=== PATIENT | female | born 1940 | race Caucasian/White ===

== ENCOUNTER 2023-09-07 20:34 | Inpatient (IN) | payer MEDICARE, SELFPAY ==
[2023-09-07 17:07] VITALS: BP 166/58
[2023-09-07 17:15] LABS: Glucose - Point of Care 57 mg/dl (70-99)
[2023-09-07] MEDS: DEXTROSE 50% SYRINGE 12.5 GRAMS IV ×2 (17:20→22:49)
--- NOTE | 2023-09-07 17:23 | ED.GENMED ---
History of Present Illness
General
Chief Complaint: Breathing Problem
Source: ambulance crew
Exam Limitations: dementia
Time Seen by Provider: 09/07/23 17:14
Travel History
Have you had any contact with someone who has COVID-19?: No
Do you have any symptoms of coronavirus? Fever > 100 degrees, chills, cough, shortness of breath, sore throat, loss of taste or smell, muscle aches, or headache?: No
History of Present Illness
History of Present Illness:
See MDM
Past History
Past History
ED Past Medical History: CHF, Other (Dementia) and Other (Chronic hearing loss, hypertension, hyperlipidemia, diabetes)
ED Past Surgical History: Gynecological (Hysterectomy)
Social History
Tobacco: Former smoker
Alcohol: None
Personal:
Living: assisted living ([facility])
Family History
Family History: CAD
Phy Exam
Physical Exam
Physical Exam:
See MDM
Scores
Heart Failure Risk
Heart Failure Risk Score: Not Applicable
Course
Orders/Labs/Results
Orders:
Orders
09/07/23 17:18
Dextrose 50%-Water [Dextrose 50% Syringe] 12.5 grams IV NOW STA
Dextrose 50%-Water [Dextrose 50% Syringe] 25 grams .ROUTE .[facility]
CR Chest Portable - 1 View Urgent
Comment:
Reason For Exam: SOB, hypoxia
Reason Study Needs to be Portable: Patient Unstable
09/07/23 17:19
Electrocardiogram (*1) Urgent
Reason for Study: Shortness of Breath
EKG- Treatment ONCE
09/07/23 17:24
COVID-19 Antigen Urgent
Source: Nasal Swab
Complete Blood Count/With Diff Urgent
Comprehensive Metabolic Panel Urgent
NT-proBNP Urgent
Troponin I Urgent
Influenza A+B Rapid Molecular Urgent
ERNESTINA Source: Nasal Swab
Specimen Description:
09/07/23 18:52
Azithromycin 500 mg IVPB NOW Azithromycin 500 mg/250 ml [Zithromax Infusion] 500 mg in 250 ml IV NOW
Aztreonam [Azactam] 2,000 mg IV NOW STA
Abnormal Lab Results
09/07/23 09/07/23
17:14 17:24
MCHC 32.4 L g/dL
(33.0-37.0)
RDW 15.2 H %
(11.5-14.5)
Absolute Neuts (auto) 7.6 H 10^3/uL
(1.4-6.5)
Absolute Monos (auto) 0.9 H 10^3/uL
(0.1-0.6)
Lymphocytes % 18.0 L %
(20.5-51.1)
Potassium 3.3 L mmol/L
(3.5-5.1)
Carbon Dioxide 33 H mmol/L
(22-30)
BUN 18 H mg/dl
(7-17)
Glucose 60 L mg/dl
(70-99)
POC Glucose 57 L mg/dl
(70-99)
09/07/23 17:24
09/07/23 17:24
Vital Signs
Initial and Last Documented VS:
Initial Vital Signs
Temp Pulse Resp BP Pulse Ox
98.2 F 67 21 166/58 89
09/07/23 17:07 09/07/23 17:07 09/07/23 17:07 09/07/23 17:07 09/07/23 17:07
Last Documented Vital Signs
Temp Pulse Resp BP Pulse Ox
98.2 F 68 19 147/58 97
09/07/23 17:07 09/07/23 18:30 09/07/23 18:30 09/07/23 18:00 09/07/23 18:30
MDM/Problems Addressed
Differential Diagnosis Includes:
HPI and MDM Narrative:
83-year-old female presenting with shortness of breath. Patient is a poor historian. She comes with paperwork indicating vascular dementia. Per EMS, there was concern from the nursing facility that she may have aspirated. Patient has required
increased oxygenation.
Prior history indicates history of admission for CHF exacerbation. Will continue supplemental oxygen and obtain chest x-ray, EKG and blood work
Physical exam
General: Mildly uncomfortable
HEENT: protecting airway
Neck: appears supple
CV: No evidence of cyanosis
Resp: No accessory muscle use. Mild wheeze and crackles at bases
Abd: Non-distended
Extremities: +3 pitting edema bilateral lower extremities
Neuro: alert
Psych: Flat affect
Skin: Intact
Problems Addressed including Acute and Chronic Conditions affecting care:
1. Shortness of breath
Acuity: acute
Prognosis: unstable
Details: Likely in setting of CHF. Will obtain basic blood work and chest
2. Hypoxia
Acuity: acute
Prognosis: unstable
Details: Will continue supplemental oxygen
3. Hypoglycemia
Acuity: acute
Prognosis: stable
Details: Patient given half an amp of D50
Updates
Chest x-ray concerning for right middle lobe pneumonia. Given her penicillin allergy, will start azithromycin and aztreonam. Given her increased oxygen requirement, will admit
Differential Diagnosis (but not limited to): CHF exacerbation, pneumonia, viral syndrome
Testing considered: D-dimer but blood work indicates that she is taking Eliquis
Drug therapy (if applicable): OTC meds, please see d/c instruction regarding Rx drugs
Amount and/or Complexity of Data Reviewed
Clinical info obtained from: Patient
External data reviewed: N/A
Labs I independently reviewed (but not limited to): trop and BNP normal
Radiology: X-ray independently reviewed: Chest x-ray with right middle lobe pneumonia
Pulse Ox: hypoxic
EKG independently reviewed: N/A
[employer] Carp[employer] Dock: N/A
Critical Care: N/A
Risk of Complication:
Social Determinants of health: Good social support
Discussed with other providers: Hospitalist
Escalation of Care includes Admit/Obs: Given her pneumonia and increased oxygen requirement, will admit
Occasional wrong word or 'sound a like' substitutions may have occurred due to the inherent limitations of voice recognition software. Read the chart carefully and recognize, using context, where substitutions have occurred.
*Critical Care Note
Total Time (30-74mins, 75-104mins- exclusive of procedures): Not Applicable
ED Attending Note
-
Portions of this chart may have been created with voice recognition software.� Occasional wrong word or��sound alike� substitutions may have occurred due to the inherent limitations of voice recognition software.
Discharge Plan
Departure
Patient Disposition: Admit
Date of Disposition: 09/07/23
Time of Disposition: 18:56
Admit to: Med/Surg
Presentation/result/management discussed w/ accepting MD/DO: Hospitalist
Discharge Problem:
PNA (pneumonia), Hypoxia, Hypoglycemia
Prescriptions:
No Action
simvastatin 20 MG tablet
20 mg PO QPM
calcium citrate 200 mg (950 mg) Tablet
200 mg PO DAILY
therapeutic multivitamin Tablet
1 tab PO DAILY
metformin 1,000 mg Tablet
1,000 mg PO BID
Lumigan 0.01 % Drops
1 drp BOTH EYES DAILY
lisinopril 20 mg tablet
20 mg PO DAILY
pantoprazole 40 mg tablet,delayed release (DR/EC)
40 mg PO DAILY
budesonide-formoterol [Symbicort] 160-4.5 mcg/actuation HFA aerosol inhaler
2 puff inhalation R BID
Eliquis 5 mg tablet
5 mg PO BID
dapagliflozin propanediol [Farxiga] 10 mg tablet
10 mg PO DAILY
furosemide 20 mg Tablet
60 mg PO DAILY Qty: 30 0RF
midodrine 5 mg Tablet
5 mg PO TID@0800,1300,1800 Qty: 30 0RF
metoprolol succinate 50 mg tablet extended release 24 hr
50 mg PO DAILY
ondansetron HCl [Zofran] 4 mg Tablet
4 mg PO Q8H PRN (Reason: nausea/vomiting)
clotrimazole-betamethasone [Lotrisone] 1-0.05 % Cream
1 applic TOPICAL BID
Rx Instructions:
apply to buttocks/dana area
Cetaphil Cream
1 applic TOPICAL HS
Rx Instructions:
apply to bilateral legs
insulin glargine [Lantus Solostar U-100 Insulin] 100 unit/mL (3 mL) insulin pen
24 unit SC DAILY
amiodarone [Pacerone] 200 mg tablet
200 mg PO DAILY
Referrals:
Tatum Rossi DO [Family Provider] -
Interventions
Interventions:
ED- Cardiac Assessment Last Done: 09/07/23 17:10
ED- Pulmonary Assessment Last Done: 09/07/23 17:10
[2023-09-07 17:36] LABS: % Basophils 0.6 % (0-2); % Eosinophils 2.7 % (0-6); % Immature Granulocytes 0.4 % (0-0.5); % Monocytes 7.9 % (1.7-9.3); % Neutrophils 70.4 % (42.2-75.2); Absolute Basophils 0.1 10^3/uL (0-0.2); Absolute Eosinophils 0.3 10^3/uL (0-0.7); Absolute Monocytes 0.9 10^3/uL (0.1-0.6); Absolute Neutrophils 7.6 10^3/uL (1.4-6.5); Hemoglobin 13.3 g/dL (12.0-16.0); Mean Corp Hgb Conc. 32.4 g/dL (33.0-37.0); Mean Corpuscular Hgb 28.1 pg (27.0-31.0); Mean Corpuscular Volume 86.7 fL (81.0-99.0); Mean Platelet Volume 9.7 fL (7.4-10.4); Nucleated Red Blood Cells % 0 %; Platelet Count 352 10^3/uL (130-400); Red Blood Cell Count 4.73 10^6/uL (4.20-5.40); Red Cell Dist. Width 15.2 % (11.5-14.5); White Blood Cell Count 10.8 10^3/uL (4.8-10.8)
[2023-09-07 17:45] LABS: ALT (SGPT) 20 U/L (0-35); AST (SGOT) 21 U/L (14-36); Albumin 3.7 g/dl (3.5-5.0); Alkaline Phosphatase 73 U/L (38-126); Blood Urea Nitrogen 18 mg/dl (7-17); Calcium 9.2 mg/dl (8.4-10.2); Carbon Dioxide 33 mmol/L (22-30); Chloride 99 mmol/L (98-107); Glucose 60 mg/dl (70-99); Potassium 3.3 mmol/L (3.5-5.1); Sodium 138 mmol/L (135-145); Total Bilirubin 0.6 mg/dl (0.2-1.3); Total Protein 6.6 g/dl (6.3-8.2); eGFR > 60.00
[2023-09-07 17:52] LABS: COVID-19 Antigen Negative (Negative)
[2023-09-07 17:55] LABS: NT-proBNP 713 pg/ml; Troponin I 0.022 ng/ml
[2023-09-07 18:00] VITALS: BP 147/58
[2023-09-07 19:00] VITALS: BP 138/86
[2023-09-07] MEDS: AZACTAM 2000 MG IV (19:10)
[2023-09-07] MEDS: ZITHROMAX INFUSION 250 IV (19:14)
[2023-09-07 20:00] VITALS: BP 156/135
[2023-09-07] MEDS: DUONEB 3 ML INH (20:00)
--- NOTE | 2023-09-07 20:10 | HPS.HSE ---
Family Physician
-
Family Physician: Tatum Rossi
Chief Complaint
-
SOB
History of Present Illness
Patient is an 83y F with PMH significant for A-Fib and DM-II who presents to ED from [place] for evaluation of wheeze and SOB. History is obtained from the patient and ED staff. Patient was sent to the ED with SOB and concern for possible
aspiration. There is no additional information on [place] paperwork regarding today's symptoms. Patient complains of SOB. She denies any pain. She does not believe she has had any issues with eating / drinking. She denies any coughing or choking
episodes.
Patient is audibly wheezing in the ED and is in mild - moderate distress due to dyspnea.
Medical History
Past Medical History
Past Medical History: Reports Other
Additional Past Medical History:
Atrial Fibrillation
Chronic HFpEF
DM-II
Hypertension
Orthostatic Hypotension
COPD
Vascular Dementia
Hearing Impairment
Morbid Obesity
Past Surgical History: Reports Other
Additional Past Surgical History:
None Known
Social History
Tobacco: Non-smoker
Alcohol: None
Living: Long Term
Family History
Family History: Not pertinent
Allergies / Home Medications
Allergies reflects when Allergies were last updated in [employer].
Home Medications with original date entered in [employer]
Allergy/Medication List:
Allergies
Allergy/AdvReac Type Severity Reaction Status Date / Time
Penicillins Allergy Unknown Verified 05/03/15 09:00
Home Medications
simvastatin 20 mg tablet 20 mg PO QPM High cholesterol 03/10/19
calcium citrate 200 mg (950 mg) tablet 200 mg PO DAILY Supplement 07/14/22
therapeutic multivitamin 1 tab PO DAILY Supplement 07/14/22
metformin 1,000 mg tablet 1,000 mg PO BID Diabetes 09/27/22
apixaban 5 mg tablet (Eliquis) 5 mg PO BID Blood Clot Prevention/Tx 05/09/23
bimatoprost 0.01 % eye drops (Lumigan) 1 drp BOTH EYES DAILY Eye Condition 05/09/23
budesonide-formoterol HFA 160 mcg-4.5 mcg/actuation aerosol inhaler (Symbicort) 2 puff inhalation R BID Lung/Breathing Issues 05/09/23
dapagliflozin propanediol 10 mg tablet (Farxiga) 10 mg PO DAILY Diabetes 05/09/23
lisinopril 20 mg tablet 20 mg PO DAILY Blood Pressure 05/09/23
pantoprazole 40 mg tablet,delayed release 40 mg PO DAILY Gastrointestinal Issue 05/09/23
furosemide 20 mg tablet 60 mg PO DAILY #30 tabs 05/20/23
midodrine 5 mg tablet 5 mg PO TID@0800,1300,1800 #30 tabs 05/20/23
amiodarone 200 mg tablet (Pacerone) 200 mg PO DAILY Arrhythmia 09/07/23
cetyl and stearate alcohol-propylen glycol-sls topical cream (Cetaphil topical cream) 1 applic topical HS 09/07/23
clotrimazole-betamethasone 1 %-0.05 % topical cream 1 applic topical BID 09/07/23
insulin glargine 100 unit/mL (3 mL) subcutaneous pen (Lantus Solostar U-100 Insulin) 24 unit SC DAILY 09/07/23
metoprolol succinate 50 mg tablet,extended release 24 hr 50 mg PO DAILY 09/07/23
ondansetron HCl 4 mg tablet 4 mg PO Q8H PRN nausea/vomiting 09/07/23
Review of Systems
-
History Source: Patient (limited ROS due to memory impairment and dyspnea)
A 12 point ROS was completed and negative except as noted: Yes
Constitutional: Denies Fever
Respiratory: Reports Trouble Breathing
Cardiac: Denies Chest Pain
Abdomen/GI: Denies Nausea, Vomiting or Diarrhea
Neurological: Denies Headache
Physical Exam
Vital Signs
Vital Signs
Temp Pulse Resp BP Pulse Ox
98.2 F 68 19 147/58 97
09/07/23 17:07 09/07/23 18:30 09/07/23 18:30 09/07/23 18:00 09/07/23 18:30
Physical Exam
General: Other (83y F in moderate distress due to dyspnea.)
HEENT: Moist mucous membranes and PERRLA
Respiratory: Other (Audible wheezing. Coarse breath sounds on the R. Diffuse inspiratory and expiratory wheezing - minimal improvement with cough.)
Cardiac: S1/S2, Irregular Rhythm and Other (No JVD.); No Murmur
GI: Soft, Non Tender, Non Distended and Normal Bowel Sounds
Musculoskeletal: No Clubbing, No Cyanosis and Other (2+ pitting edema.)
Skin: Other (Cyanosis of the fingertips.)
Neuro: Awake and Alert
Laboratory Results
-
09/07/23 17:24
09/07/23 17:24
Laboratory Results
Total Bilirubin 0.6 mg/dl (0.2-1.3) 09/07/23 17:24
AST 21 U/L (14-36) 09/07/23 17:24
ALT 20 U/L (0-35) 09/07/23 17:24
Alkaline Phosphatase 73 U/L (38-126) 09/07/23 17:24
Troponin I 0.022 ng/ml 09/07/23 17:24
Impression/Plan
-
A/P: Patient is an 83y F with PMH significant for A-Fib, COPD and CHF who presents to ED for evaluation of SOB.
RLL Pneumonia
Acute Hypoxemic Respiratory Failure secondary to the above
Sepsis secondary to the above
- Admit for further evaluation and treatment.
- Patient presents with SOB and CXR evidence for R base pneumonia.
- Evidence of life-threatening organ dysfunction in the form of acute hypoxemic respiratory failure.
- Continue IV abx with ceftriaxone, doxycycline and metronidazole with suspicion for aspiration pneumonia / pneumonitis.
- Continue nebs ATC and PRN.
- Chest PT.
- Follow for clinical improvement.
- Aspiration precautions / formal Speech therapy evaluation.
Paroxysmal Atrial Fibrillation
- Stable. Continue amiodarone and metoprolol.
- Continue Eliquis for stroke risk reduction.
Chronic HFpEF
- Stable. Doubt significant volume overload contributing to current presentation.
- BNP markedly improved from prior - despite some persistent LE edema.
- No rales on exam and CXR not consistent with pulmonary edema.
- Continue current regimen including Lasix and Farxiga.
- Follow I/Os, daily weights, etc.
- Will continue current midodrine for now (see below).
Benign Hypertension
- Stable. BP is acceptable at present.
- Patient is on metoprolol and lisinopril - but also on midodrine standing TID.
- Will hold lisinopril for now.
- Holding parameters for midodrine.
- Adjust regimen as needed for control.
Hypokalemia
- Mild hypokalemia. Will replete as patient is on loop diuretics.
- Follow for stability.
COPD
- Patient with no smoking history, but is maintained on Symbicort.
- Continue inhaled corticosteroids.
- Continue nebs as noted above.
- Consider systemic steroids with respiratory status does not improve.
DM-II
Mild Hypoglycemia
- Adjust insulin regimen for hypoglycemia / NPO status pending Speech eval.
- Continue to monitor glucose and cover with SSI if needed.
- Update A1C.
Vascular Dementia
- Stable. Monitor for any acute changes / agitation / delirium.
Morbid Obesity due to excess calories
- Affects all aspects of care, including respiratory status.
- Doubt that this 83y F with dementia is capable of significant dietary / activity changes required to impact weight.
DVT Prophylaxis: On Eliquis
Code Status: DNR
[2023-09-07] MEDS: KCL 270 MEQ IV (20:29)
[2023-09-07 22:28] VITALS: BMI 32.0
[2023-09-07 22:30] VITALS: BMI 32.0
[2023-09-07 22:32] VITALS: BP 122/62
[2023-09-07 22:37] LABS: Glucose - Point of Care 63 mg/dl (70-99)
[2023-09-07] MEDS: ELIQUIS 5 MG PO (22:54)
[2023-09-07 23:14] LABS: Glucose - Point of Care 117 mg/dl (70-99)
[2023-09-07] MEDS: FLAGYL 500 MG 100 IV (23:31)
[2023-09-08] MEDS: LUMIGAN 0.01% 1 DROP BOTH EYES (00:03)
[2023-09-08] MEDS: VENTOLIN NEBULES 2.5 MG INH (01:47)
[2023-09-08] MEDS: ROCEPHIN 1000 MG IV (02:46)
[2023-09-08] MEDS: STERILE WATER FOR INJECTION 10 ML IV (02:46)
[2023-09-08 03:45] VITALS: BP 139/52
[2023-09-08 03:58] LABS: Glucose - Point of Care 81 mg/dl (70-99)
--- NOTE | 2023-09-08 03:59 | PTCARENOTE ---
Patient arrived on unit @2210 via stretcher from ED, transferred from stretcher to bed with assist x3. Patient AAOx2, slow speech, audible wheeze, denies any pain or discomfort. Skin assessment completed, oriented to unit. BS on arrival is 63, pt
NPO, dextrose 50% syringe 12.5 grams administered as ordered. Recheck of BS 117, will continue plan of care.
[2023-09-08 06:00] VITALS: BMI 31.9
[2023-09-08] MEDS: FLAGYL 500 MG 100 IV (06:04)
[2023-09-08 06:09] LABS: Glucose - Point of Care 78 mg/dl (70-99)
[2023-09-08] MEDS: PULMICORT 0.5 MG INH (06:12)
[2023-09-08] MEDS: DUONEB 3 ML INH ×2 (06:13→10:08)
[2023-09-08 06:31] LABS: Hematocrit 39.8 % (37.0-47.0); Hemoglobin 12.8 g/dL (12.0-16.0); Mean Corp Hgb Conc. 32.2 g/dL (33.0-37.0); Mean Corpuscular Hgb 28.3 pg (27.0-31.0); Mean Corpuscular Volume 88.1 fL (81.0-99.0); Mean Platelet Volume 9.7 fL (7.4-10.4); Platelet Count 312 10^3/uL (130-400); Red Blood Cell Count 4.52 10^6/uL (4.20-5.40); Red Cell Dist. Width 15.3 % (11.5-14.5); White Blood Cell Count 8.3 10^3/uL (4.8-10.8)
[2023-09-08 06:57] LABS: Blood Urea Nitrogen 18 mg/dl (7-17); Calcium 9.3 mg/dl (8.4-10.2); Carbon Dioxide 32 mmol/L (22-30); Chloride 102 mmol/L (98-107); Estimated Creatinine Clearance 54 ml/min; Glucose 80 mg/dl (70-99); Magnesium 1.2 mg/dl (1.6-2.3); Potassium 3.9 mmol/L (3.5-5.1); Sodium 141 mmol/L (135-145); eGFR > 60.00
[2023-09-08 07:25] LABS: TSH Reflex To Free T4 2.24 uIU/ml (0.47-4.68)
[2023-09-08 07:45] VITALS: BP 152/66
--- NOTE | 2023-09-08 08:18 | W.PN.HOSP.TC ---
Addendum entered and electronically signed by Jered Paris MD 09/08/23 10:10:
Patient developed significant desaturation of O2 and respiratory congestion continues will be placed nonrebreather and will need to transfer to higher level of care patient is DO NOT RESUSCITATE and would not require ICU IMU appropriate left message
for patient and spouse but no answer and need to clarify goals of care tried reaching patient's sister and just did not ring at all at number given.
Addendum entered and electronically signed by Jered Paris MD 09/08/23 09:35:
Speech therapy evaluated the patient and evaluation consistent with high risk of recurrent aspiration and apparent inability to protect airway will be kept n.p.o. I will try and contact primary fireperson which is her spouse in regards to goals
of care she will be kept n.p.o. with change of medications what can to IV/if after repeat evaluation remains unchanged consideration for Dobbhoff tube feeds and medications versus PEG.
Original Note:
Today's Communication/Plan
-
Suspect she is either acutely or chronically aspirating
She continues to have some significant bronchospasm
Would favor short course of IV steroids in addition to continued DuoNebs and oxygen as needed
Await speech therapy evaluation to assess aspiration risk
Continue present course of ordered antibiotic
Cardiac status seems to be stable
Assessment / Plan
Assessment / Plan
Patient is an 83y F with PMH significant for A-Fib and DM-II who presents to ED from [place] for evaluation of wheeze and SOB.� History is obtained from the patient and ED staff.� Patient was sent to the ED with SOB and concern for possible
aspiration.� There is no additional information on [place] paperwork regarding today's symptoms.� Patient complains of SOB.� She denies any pain.� She does not believe she has had any issues with eating / drinking.� She denies any coughing or choking
episodes. Poor historian
Patient is audibly wheezing in the ED and is in mild - moderate distress due to dyspnea.
Physical Exam
General: Other (83y F in moderate distress due to dyspnea.)
HEENT: Moist mucous membranes and PERRLA
Respiratory: Other (Audible wheezing.� Coarse breath sounds on the R.� Diffuse inspiratory and expiratory wheezing - minimal improvement with cough.)
Cardiac: S1/S2, Irregular Rhythm and Other (No JVD.); No Murmur
GI: Soft, Non Tender, Non Distended and Normal Bowel Sounds
Musculoskeletal: No Clubbing, No Cyanosis and Other (2+ pitting edema.)
Skin: Other (Cyanosis of the fingertips.)
Neuro: Awake and Alert
A/P:� Patient is an 83y F with PMH significant for A-Fib, COPD and CHF who presents to ED for evaluation of SOB.
RLL Pneumonia
Acute Hypoxemic Respiratory Failure secondary to the above
Sepsis secondary to the above
�- Admit for further evaluation and treatment.
�- Patient presents with SOB and CXR evidence for R base pneumonia.
�- Evidence of life-threatening organ dysfunction in the form of acute hypoxemic respiratory failure.
�- Continue IV abx with ceftriaxone, doxycycline and metronidazole with suspicion for aspiration pneumonia / pneumonitis.
�- Continue nebs ATC and PRN.
�- Chest PT.
�- Follow for clinical improvement.
�- Aspiration precautions / formal Speech therapy evaluation.
Paroxysmal Atrial Fibrillation/presently in sinus rhythm
�- Stable.� Continue amiodarone and metoprolol.
�- Continue Eliquis for stroke risk reduction.
Chronic HFpEF
�- Stable.� Doubt significant volume overload contributing to current presentation.
�- BNP markedly improved from prior - despite some persistent LE edema.
�- No rales on exam and CXR not consistent with pulmonary edema.
�- Continue current regimen including Lasix and Farxiga.
�- Follow I/Os, daily weights, etc.
�- Will continue current midodrine for now (see below).
Benign Hypertension
�- Stable.� BP is acceptable at present.
�- Patient is on metoprolol and lisinopril - but also on midodrine standing TID.
�- Will hold lisinopril for now.
�- Holding parameters for midodrine.
�- Adjust regimen as needed for control.
Hypokalemia
�- Mild hypokalemia.� Will replete as patient is on loop diuretics.
�- Follow for stability.
Hypomagnesemia
-Will replete
COPD
�- Patient with no smoking history, but is maintained on Symbicort.
�- Continue inhaled corticosteroids.
�- Continue nebs as noted above.
�- Consider systemic steroids with respiratory status does not improve.
DM-II
Mild Hypoglycemia
�- Adjust insulin regimen for hypoglycemia / NPO status pending Speech eval.
�- Continue to monitor glucose and cover with SSI if needed.
�- Update A1C.
Vascular Dementia
�- Stable.� Monitor for any acute changes / agitation / delirium.
Morbid Obesity due to excess calories
�- Affects all aspects of care, including respiratory status.
�- Doubt that this 83y F with dementia is capable of significant dietary / activity changes required to impact weight.
DVT Prophylaxis:� On Eliquis
Code Status:� DNR
Anticipated Discharge: Within 24 hours
Subjective/Interval History
-
Date of Service: September 08, 2023
Patient is a poor historian due to underlying dementia currently has a harsh cough and rhonchorous breathing on 2 L of oxygen
Objective Data
-
Labs:
Laboratory Results
09/08/23
06:16
WBC 8.3
Hgb 12.8
Hct 39.8
Plt Count 312
Sodium 141
Potassium 3.9
Chloride 102
Carbon Dioxide 32 H
BUN 18 H
Creatinine 0.8
Glucose 80
Calcium 9.3
Vital Signs:
Vital Signs
Temp Pulse Resp BP Pulse Ox
98.3 F 93 20 152/66 91
09/08/23 07:45 09/08/23 07:45 09/08/23 07:45 09/08/23 07:45 09/08/23 07:45
I&O
09/07/23 09/08/23 09/09/23
06:59 06:59 06:59
Intake Total 100 / 100
Balance 100 / 100
Review of Systems
-
Unable to obtain full review of systems at this time due to: Dementia
History Source: Patient
Respiratory: Reports Cough and Trouble Breathing
Cardiac: Reports No Symptoms
Physical Exam
-
General: Respiratory Distress
HEENT: Normocephalic
Respiratory: Wheezes and Rhonchi
Cardiac: Regular Rhythm and S1/S2 (Sinus rhythm)
GI: Soft and Nontender
Psych: Calm, Confused and Apparent Dementia
Data Reviewed
-
Total Time Spent with Patient (in minutes): 56
Labs: Labs Reviewed by me (No leukocytosis/chemistries are okay except magnesium 1.2)
[2023-09-08] MEDS: LANTUS 0.140000000000000013 UNITS SC (08:19)
[2023-09-08] MEDS: VIBRAMYCIN 100 MG PO (08:20)
[2023-09-08] MEDS: TOPROL XL 50 MG PO (08:21)
[2023-09-08] MEDS: ProAmatine 5 MG PO (08:22)
[2023-09-08] MEDS: FARXIGA 10 MG PO (08:22)
[2023-09-08] MEDS: PROTONIX 40 MG PO (08:22)
[2023-09-08] MEDS: ELIQUIS 5 MG PO (08:23)
[2023-09-08] MEDS: LASIX 60 MG PO (08:23)
[2023-09-08] MEDS: PACERONE 200 MG PO (08:23)
[2023-09-08 08:45] LABS: Glycohemoglobin (HgbA1c) 9.3 % (4.0-5.6)
[2023-09-08] MEDS: MAGNESIUM SULFATE 50 IV (09:43)
[2023-09-08] MEDS: DECADRON 4 MG IV (09:43)
[2023-09-08 09:53] LABS: Glucose - Point of Care 101 mg/dl (70-99)
[2023-09-08] MEDS: LOPRESSOR 5 MG IV (10:00)
[2023-09-08 10:06] VITALS: BP 210/155
--- NOTE | 2023-09-08 10:07 | PTOTSP ---
ST Dysphagia Evaluation
Severe oral and suspected pharyngeal dysphagia; overt s/sx of aspiration with bedside PO trials. Wet/congested upper airway congestion with weak/ineffective cough
Pt received awake/alert wet/gurgly upper airway secretions noted. Shallow/labored respirations with ongoing wet/non-productive coughing prior to PO trials. RN made aware advised suction set up at the bedside. Per spouse at the bedside she began
coughing after receiving PO meds this AM.
Conducted single trial of thin liquids by tsp refused at first, encouraged by her spouse to accept. Demo impaired bolus control and suspected swallow delay with wet coughing after swallow. No further PO trials were provided. Education to pt/spouse
re: rationale for NPO status at this time.
Recommend
1. Strict NPO with meds via non-oral route
2. Aspiration precautions and frequent/thorough oral care with suction as needed
3. SANITATION TRUCK DRIVER following; reassess swallow at bedside may require short term enteral access. Determine timing of instrumental testing
--- NOTE | 2023-09-08 10:24 | W.PN.UPDATE ---
Update Note
Progress Note Update
Patient spouse was at bedside and and related present issues patient after arrival endorses patient clinical presentation did not seem to be consistent with recurrent aspiration pneumonitis that now is reaching intractable respiratory failure with
frequent aspiration noted in speech therapy noting patient cannot protect her airway discussed goals of care at this point and the max measures to take would be intubation which after discussion with patient's spouse he does not wish as the patient
is already DNR/DNI status and would not revert the issue of chronic aspiration as result she will be transition to comfort care and will not transfer to IMU and keep them present bed assignment secretions management morphine as needed and consult
hospice care for presumed inpatient hospice transition.
--- NOTE | 2023-09-08 10:30 | WOUNDNOTE ---
RUPA/BUTTOCKS/THIGH (posterior)
[2023-09-08] MEDS: MORPHINE SULFATE 2 MG IV ×7 (10:40→23:58)
--- NOTE | 2023-09-08 10:44 | WOUNDNOTE ---
[facility] RN note: Patient admitted with RLE pneumonia, hypoxic respiratory failure. Patient is going on comfort measures only/hospice care.
See H&P for complete history.
PMH: a fib, DM, HTN, orthostatic HOTN, COPD, vascular dementia, ELIM IRA, obesity.
Wound Location and type/assessment: Patient admitted with: MASD dana,buttocks,posterior thigh.
Appetite: NPO d/t aspiration.
Pressure redistribution devices in place: Advanta with Accumax mattress. Patient cannot turn self.
Plan: Assisted JULIANE Dai, nurse educator Al[employer] and RN student with turning, changing underpad/linen and application of Waffle air overlay. Heels off bed with pillow. JULIANE Dai applied Calazime to dana/buttocks/thigh affected areas.
Updated care plan and will sign off.
--- NOTE | 2023-09-08 11:27 | CHAP ---
Emotional and spiritual support provided for Ms. Dumont's at bedside and in waiting area. Stories shared. Prayer blanket given and prayers of commendation said. Will follow.
[2023-09-08 12:13] LABS: Glucose - Point of Care 96 mg/dl (70-99)
[2023-09-08] MEDS: ROBINUL 0.200000000000000011 MG IV ×2 (13:51→22:27)
--- NOTE | 2023-09-08 14:00 | CM ---
Addendum entered by JI Lunsford 09/08/23 14:31:
Received consult for hospice. Placed a call to Cheryl in admissions at [facility] to make aware. Placed a call to patient's spouse who was agreeable to having Carmella from hospice call him.
Original Note:
Received call from Cheryl in admissions at [facility]. She stated that patient is a resident of their memory care and her spouse lives in independent living. Placed a call to patient's spouse to obtain information for assessment.
Patient's spouse stated that patient lives in memory care and he visits her every day. She is completely dependent with all her ADLs and personal care as well as dressing, bathing and toileting.
Patient is in a w/c and does not ambulate. She is on a no dairy diet. She can feed herself if she is set up.
She [place] very [place] and if she does not have her hearing aid in she can't hear at all.
Patient's spouse stated that patient is really dependent on staff for all ADLs. He would like for her to return to memory care when cleared for discharge.
Plan: Case management will continue to follow and assist with discharge planning. Back to Memory Care when stable at [facility].
--- NOTE | 2023-09-08 14:50 | HOSPNOTE ---
Addendum entered by Carmella Meza RN 09/08/23 14:56:
Read Attendings addendum it looks as if comfort measures in place now and then transition to inpatient hospice if patient does not pass, please reach out over the weekend if our services are needed.
Original Note:
Spoke with spouse about hospice and the philosophy. The plan is for patient to return to [facility]. The spouse is appreciative of the information and in agreement with hospice when the patient is ready for discharge.
[2023-09-08] MEDS: TYLENOL/FEVERALL 650 MG RECTAL (21:53)
[2023-09-08 22:38] LABS: Glucose - Point of Care 75 mg/dl (70-99)
[2023-09-08] MEDS: DESENEX/MITRAZOL/ZEASORB 1 APPLIC TOPICAL (22:38)
[2023-09-08 22:41] VITALS: BP 132/69
[2023-09-09] MEDS: MORPHINE SULFATE 2 MG IV ×5 (02:03→09:25)
[2023-09-09] MEDS: TYLENOL/FEVERALL 650 MG RECTAL (02:15)
[2023-09-09] MEDS: ROBINUL 0.200000000000000011 MG IV ×3 (02:27→21:31)
[2023-09-09 06:03] LABS: Glucose - Point of Care 55 mg/dl (70-99)
[2023-09-09] MEDS: DEXTROSE 50% SYRINGE 12.5 GRAMS IV ×2 (06:08→17:53)
[2023-09-09 06:47] LABS: Glucose - Point of Care 127 mg/dl (70-99)
[2023-09-09 07:23] VITALS: BP 135/76
[2023-09-09] MEDS: DESENEX/MITRAZOL/ZEASORB 1 APPLIC TOPICAL ×2 (08:03→21:29)
--- NOTE | 2023-09-09 09:47 | W.PN.HOSP.TC ---
Today's Communication/Plan
-
Will reduce insulin requirements with lack of intake
Continue comfort care measures
Morphine IV will be transition to Roxanol and sublingual Ativan with secretions management with glycopyrrolate
Assessment / Plan
Assessment / Plan
Patient is an 83y F with PMH significant for A-Fib and DM-II who [place] of wheeze and SOB.� History is obtained from the patient and ED staff.� Patient was sent to the ED with SOB and concern for possible
aspiration.� There is no additional information on [place] paperwork regarding today's symptoms.� Patient complains of SOB.� She denies any pain.� She does not believe she has had any issues with eating / drinking.� She denies any coughing or choking
episodes. Poor historian
Patient is audibly wheezing in the ED and is in mild - moderate distress due to dyspnea.
Physical Exam
General: Other (83y F in moderate distress due to dyspnea.)
HEENT: Moist mucous membranes and PERRLA
Respiratory: Other (Audible wheezing.� Coarse breath sounds on the R.� Diffuse inspiratory and expiratory wheezing - minimal improvement with cough.)
Cardiac: S1/S2, Irregular Rhythm and Other (No JVD.); No Murmur
GI: Soft, Non Tender, Non Distended and Normal Bowel Sounds
Musculoskeletal: No Clubbing, No Cyanosis and Other (2+ pitting edema.)
Skin: Other (Cyanosis of the fingertips.)
Neuro: Awake and Alert
A/P:� Patient is an 83y F with PMH significant for A-Fib, COPD and CHF who presents to ED for evaluation of SOB.
RLL Pneumonia
Acute Hypoxemic Respiratory Failure secondary to the above
Sepsis secondary to the above
�- Admit for further evaluation and treatment.
�- Patient presents with SOB and CXR evidence for R base pneumonia.
�- Evidence of life-threatening organ dysfunction in the form of acute hypoxemic respiratory failure.
�- Continue IV abx with ceftriaxone, doxycycline and metronidazole with suspicion for aspiration pneumonia / pneumonitis.
�- Continue nebs ATC and PRN.
�- Chest PT.
�- Follow for clinical improvement.
�- Aspiration precautions / formal Speech therapy evaluation. Undertaken and has high risk for recurrent aspiration with all consistencies recommendation is for complete n.p.o. status as cannot protect her airway
-Spoke to spouse at bedside and have decided to initiate comfort care with transition to hospice at [facility] on discharge
Paroxysmal Atrial Fibrillation/presently in sinus rhythm
�- Stable.� Continue amiodarone and metoprolol.(Now discontinued in setting of comfort care)
�- Continue Eliquis for stroke risk reduction.
Chronic HFpEF
�- Stable.� Doubt significant volume overload contributing to current presentation.
�- BNP markedly improved from prior - despite some persistent LE edema.
�- No rales on exam and CXR not consistent with pulmonary edema.
�- Continue current regimen including Lasix and Farxiga(comfort care).
�- Follow I/Os, daily weights, etc.
�- Will continue current midodrine for now (see below). Discontinued comfort care
Benign Hypertension
�- Stable.� BP is acceptable at present.
�- Patient is on metoprolol and lisinopril - but also on midodrine standing TID.
�- Will hold lisinopril for now.
�- Holding parameters for midodrine.
�- Adjust regimen as needed for control.
Hypokalemia
�- Mild hypokalemia.� Will replete as patient is on loop diuretics.
�- Follow for stability.
Hypomagnesemia
-Will replete
COPD
�- Patient with no smoking history, but is maintained on Symbicort.
�- Continue inhaled corticosteroids.
�- Continue nebs as noted above.
�- Consider systemic steroids with respiratory status does not improve.
-Continue nebulization and oxygen therapy as needed on comfort care
DM-II
Mild Hypoglycemia
�- Adjust insulin regimen for hypoglycemia / NPO status pending Speech eval.
�- Continue to monitor glucose and cover with SSI if needed.
�- Update A1C.
Vascular Dementia
�- Stable.� Monitor for any acute changes / agitation / delirium
-With dependent on all ADLs and care at memory care unit prior.
Morbid Obesity due to excess calories
�- Affects all aspects of care, including respiratory status.
�- Doubt that this 83y F with dementia is capable of significant dietary / activity changes required to impact weight.
DVT Prophylaxis:� On Eliquis
Code Status:� DNR
Anticipated Discharge: Within 24 hours
Subjective/Interval History
-
Date of Service: September 09, 2023
Presently on 4 L of midh flow O2/remains with dyspnea and congestion disorientation underlying dementia
Objective Data
-
Labs:
Laboratory Results
09/09/23
06:00
WBC Cancelled
Hgb Cancelled
Hct Cancelled
Plt Count Cancelled
Sodium Cancelled
Potassium Cancelled
Chloride Cancelled
Carbon Dioxide Cancelled
BUN Cancelled
Creatinine Cancelled
Glucose Cancelled
Calcium Cancelled
Vital Signs:
Vital Signs
Temp Pulse Resp BP Pulse Ox
99.1 F 110 18 135/76 92
09/09/23 07:23 09/09/23 07:23 09/09/23 07:23 09/09/23 07:23 09/09/23 07:23
I&O
09/08/23 09/09/23 09/10/23
06:59 06:59 07:59
Intake Total 100 / 100
Balance 100 / 100
Review of Systems
-
Unable to obtain full review of systems at this time due to: Dementia
History Source: Patient
Constitutional: Reports Fatigue and Weakness
Respiratory: Reports Trouble Breathing and Wheezing
Physical Exam
-
General: Appears Chronically Ill
HEENT: Normocephalic
Respiratory: Rales, Rhonchi and Crackles
GI: Soft
Musculoskeletal: Edema, Right Lower Extrem and Edema, Left Lower Extrem; Negative No Cyanosis
Neuro: Awake; Negative Oriented
Psych: Confused and Apparent Dementia
Data Reviewed
-
Total Time Spent with Patient (in minutes): 56
Labs: Labs Reviewed by me (Hypoglycemic this morning)
[2023-09-09] MEDS: ROXANOL ORAL CONCENTRATE 10 MG PO (10:59)
[2023-09-09 11:45] LABS: Glucose - Point of Care 73 mg/dl (70-99)
[2023-09-09] MEDS: ROXANOL ORAL CONCENTRATE 10 MG SL ×2 (15:18→21:24)
--- NOTE | 2023-09-09 15:47 | CHAP ---
Ms. Dumont was resting - no family present. I spoke gently at her side and asked if she would like a prayer. She nodded. I offered the Lord's Prayer and asked God's blessings for Marta; provided comfort and support.
[2023-09-09 17:46] LABS: Glucose - Point of Care 65 mg/dl (70-99)
[2023-09-09 18:39] LABS: Glucose - Point of Care 105 mg/dl (70-99)
[2023-09-09 23:42] LABS: Glucose - Point of Care 74 mg/dl (70-99)
[2023-09-09 23:45] VITALS: BP 166/85
[2023-09-10 03:18] LABS: Glucose - Point of Care 77 mg/dl (70-99)
[2023-09-10] MEDS: ROBINUL 0.200000000000000011 MG IV ×2 (06:15→11:38)
[2023-09-10] MEDS: ROXANOL ORAL CONCENTRATE 10 MG SL ×4 (06:16→23:23)
[2023-09-10 07:00] VITALS: BP 171/83
[2023-09-10 07:53] LABS: Glucose - Point of Care 83 mg/dl (70-99)
--- NOTE | 2023-09-10 08:00 | W.PN.HOSP.TC ---
Today's Communication/Plan
-
Secretions management to continue
Comfort care with morphine IV as needed/transition to Roxanol sublingual once transfer made to [facility]
Add scopolamine patch
Assessment / Plan
Assessment / Plan
Patient is an 83y F with PMH significant for A-Fib and DM-II who presents to ED from [place] for evaluation of wheeze and SOB.� History is obtained from the patient and ED staff.� Patient was sent to the ED with SOB and concern for possible
aspiration.� There is no additional information on [place] paperwork regarding today's symptoms.� Patient complains of SOB.� She denies any pain.� She does not believe she has had any issues with eating / drinking.� She denies any coughing or choking
episodes. Poor historian
Patient is audibly wheezing in the ED and is in mild - moderate distress due to dyspnea.
Physical Exam
General: Other (83y F in moderate distress due to dyspnea.)
HEENT: Moist mucous membranes and PERRLA
Respiratory: Other (Audible wheezing.� Coarse breath sounds on the R.� Diffuse inspiratory and expiratory wheezing - minimal improvement with cough.)
Cardiac: S1/S2, Irregular Rhythm and Other (No JVD.); No Murmur
GI: Soft, Non Tender, Non Distended and Normal Bowel Sounds
Musculoskeletal: No Clubbing, No Cyanosis and Other (2+ pitting edema.)
Skin: Other (Cyanosis of the fingertips.)
Neuro: Awake and Alert
A/P:� Patient is an 83y F with PMH significant for A-Fib, COPD and CHF who presents to ED for evaluation of SOB.
Entered into comfort care with repeated aspiration events and inability to clear her airway with advanced dementia and dysphagia
RLL Pneumonia
Acute Hypoxemic Respiratory Failure secondary to the above
Sepsis secondary to the above
�- Admit for further evaluation and treatment.
�- Patient presents with SOB and CXR evidence for R base pneumonia.
�- Evidence of life-threatening organ dysfunction in the form of acute hypoxemic respiratory failure.
�-Discontinued antibiotics on comfort care
�- Continue nebs ATC and PRN.
�- Chest PT.
�
�- Aspiration precautions / formal Speech therapy evaluation. Undertaken and has high risk for recurrent aspiration with all consistencies recommendation is for complete n.p.o. status as cannot protect her airway
-Spoke to spouse at bedside and have decided to initiate comfort care with transition to hospice at [facility] on discharge
Paroxysmal Atrial Fibrillation/presently in sinus rhythm
�- Stable.� Continue amiodarone and metoprolol.(Now discontinued in setting of comfort care)
�- Continue Eliquis for stroke risk reduction.
Chronic HFpEF
�- Stable.� Doubt significant volume overload contributing to current presentation.
�- BNP markedly improved from prior - despite some persistent LE edema.
�- No rales on exam and CXR not consistent with pulmonary edema.
�- Continue current regimen including Lasix and Farxiga(comfort care).
�- Follow I/Os, daily weights, etc.
�- Will continue current midodrine for now (see below). Discontinued in the lieu of comfort care
Benign Hypertension
�- Stable.� BP is acceptable at present.
�- Patient is on metoprolol and lisinopril - but also on midodrine standing TID.
�- Will hold lisinopril for now.
�- Holding parameters for midodrine.
�- Adjust regimen as needed for control.
Hypokalemia
�- Mild hypokalemia.� Will replete as patient is on loop diuretics.
�- Follow for stability.
Hypomagnesemia
-Will replete
COPD
�- Patient with no smoking history, but is maintained on Symbicort.
�- Continue inhaled corticosteroids.
�- Continue nebs as noted above.
�- Consider systemic steroids with respiratory status does not improve.
-Continue nebulization and oxygen therapy as needed on comfort care
DM-II
Mild Hypoglycemia
�- Adjust insulin regimen for hypoglycemia / NPO status pending Speech eval.
�- Continue to monitor glucose and cover with SSI if needed.
�- Update A1C.
Vascular Dementia
�- Stable.� Monitor for any acute changes / agitation / delirium
-With dependent on all ADLs and care at memory care unit prior.
Morbid Obesity due to excess calories
�- Affects all aspects of care, including respiratory status.
�- Doubt that this 83y F with dementia is capable of significant dietary / activity changes required to impact weight.
DVT Prophylaxis:� On Eliquis
Code Status:� DNR
Continues on comfort care will make arrangements for eventual transition to hospice care at [facility]
Anticipated Discharge: Within 24 hours
Subjective/Interval History
-
Date of Service: September 10, 2023
Awakens but does not interact significant respiratory secretions and congestion requiring suctioning/mid flow O2 at 4 L
Objective Data
-
Vital Signs:
Vital Signs
Temp Pulse Resp BP Pulse Ox
100.4 F H 121 18 166/85 90
09/10/23 05:29 09/09/23 23:45 09/09/23 23:45 09/09/23 23:45 09/09/23 23:45
I&O
09/09/23 09/10/23 09/11/23
05:59 06:59 06:59
Intake Total
Balance
Review of Systems
-
Unable to obtain full review of systems at this time due to: Dementia
History Source: Patient and Family
Constitutional: Reports Fatigue; Denies Fever
Respiratory: Reports Trouble Breathing
Psych: Reports Sad
Physical Exam
-
General: Respiratory Distress
HEENT: Normocephalic
Respiratory: Rales, Rhonchi and Crackles
Cardiac: Irregular Rhythm
GI: Soft
Neuro: Awake
Psych: Calm, Confused and Apparent Dementia
Data Reviewed
-
Total Time Spent with Patient (in minutes): 56
[2023-09-10] MEDS: DESENEX/MITRAZOL/ZEASORB 1 APPLIC TOPICAL ×2 (08:42→19:50)
[2023-09-10] MEDS: TRANSDERM-SCOP 1 PATCH TRANSDERM (08:42)
[2023-09-10] MEDS: TYLENOL/FEVERALL 650 MG RECTAL ×2 (11:32→16:07)
[2023-09-10 16:04] LABS: Glucose - Point of Care 122 mg/dl (70-99)
[2023-09-10 23:01] VITALS: BP 124/70
[2023-09-11 00:36] LABS: Glucose - Point of Care 188 mg/dl (70-99)
[2023-09-11] MEDS: ROXANOL ORAL CONCENTRATE 10 MG SL (03:33)
[2023-09-11 06:16] LABS: Glucose - Point of Care 224 mg/dl (70-99)
[2023-09-11 08:07] VITALS: BP 106/68
[2023-09-11] MEDS: DESENEX/MITRAZOL/ZEASORB 1 APPLIC TOPICAL ×2 (09:04→20:03)
--- NOTE | 2023-09-11 11:24 | W.PN.HOSP.TC ---
Today's Communication/Plan
-
Discharge once arrangements made
Assessment / Plan
Assessment / Plan
Patient is an 83y F with PMH significant for A-Fib and DM-II who [place] ED [place] for evaluation of wheeze and SOB.� History is obtained from the patient and ED staff.� Patient was sent to the ED with SOB and concern for possible
aspiration.� There is no additional information on CT paperwork regarding today's symptoms.� Patient complains of SOB.� She denies any pain.� She does not believe she has had any issues with eating / drinking.� She denies any coughing or choking
episodes. Poor historian
Patient is audibly wheezing in the ED and is in mild - moderate distress due to dyspnea.
Awake
Not following commands
A/P:� Patient is an 83y F with PMH significant for A-Fib, COPD and CHF who presents to ED for evaluation of SOB.
Entered into comfort care with repeated aspiration events and inability to clear her airway with advanced dementia and dysphagia
#RLL Pneumonia
Acute Hypoxemic Respiratory Failure secondary to the above
Sepsis secondary to the above
�- Patient presents with SOB and CXR evidence for R base pneumonia.
�- Evidence of life-threatening organ dysfunction in the form of acute hypoxemic respiratory failure.
�- Discontinued antibiotics on comfort care
�- Continue nebs ATC and PRN.
��- Aspiration precautions / formal Speech therapy evaluation. Undertaken and has high risk for recurrent aspiration with all consistencies recommendation is for complete n.p.o. status as cannot protect her airway
-Spoke to spouse at bedside and have decided to initiate comfort care with transition to hospice at [facility] on discharge
#Paroxysmal Atrial Fibrillation/presently in sinus rhythm
�- Stable.� Eliquis, Amiodarone and metoprolol.(Now discontinued in setting of comfort care)
#Chronic HFpEF
�- Stable.�
�- Off Lasix and Farxiga(comfort care).
�- Midodrine Discontinued in the lieu of comfort care
#Benign Hypertension
-Off Metoprolol and lisinopril (comfort care).
#Hypokalemia
#Hypomagnesemia
#COPD
�- Patient with no smoking history, but is maintained on Symbicort.
-Continue nebulization and oxygen therapy as needed on comfort care
#DM-II
Mild Hypoglycemia
Continue to monitor glucose and cover with SSI if needed.
�
#Vascular Dementia
�- Stable.� Monitor for any acute changes / agitation / delirium
-With dependent on all ADLs and care at memory care unit prior.
#Obesity due to excess calories
#Code Status:� DNR
PLAN
Continues on comfort care will make arrangements for eventual transition to hospice care at [facility]
Out of Hospital DNR signed
D/W Case management.
Anticipated Discharge: Today
Subjective/Interval History
-
Date of Service: September 11, 2023
Objective Data
-
Vital Signs:
Vital Signs
Temp Pulse Resp BP Pulse Ox
98.9 F 106 14 106/68 94
09/10/23 23:01 09/11/23 08:07 09/11/23 08:07 09/11/23 08:07 09/11/23 08:07
I&O
09/10/23 09/11/23 09/12/23
06:59 06:59 06:59
Intake Total 0 / 0
Balance 0 / 0
--- NOTE | 2023-09-11 11:46 | CM ---
Addendum entered by Kelsy Solares [facility] 09/11/23 17:31:
Cheryl verified that she received fax. She will review and return call in am.
Addendum entered by Kelsy Solares [facility] 09/11/23 17:10:
Cheryl in admissions stated that she would be unable to take patient until tomorrow (late entry from 14:00 today).
Addendum entered by Kelsy Solares [facility] 09/11/23 16:19:
Faxed referral over manually, Cheryl in admissions stated that she only received part of the clinical. Faxed clinical to Cheryl x3 more. She stated that she did not receive documents. Faxed on two different faxes, will await her receipt.
Addendum entered by Kelsy Solares [facility] 09/11/23 14:13:
faxed clinical through [employer]. Cheryl called and stated that she never received it. Offer was made to manually fax it and she stated that her fax# is [phone]. Manually faxed referral. Will await determination.
Original Note:
Spoke with attending who stated that patient is stable for discharge. Placed a call to Cheryl in admissions at the [facility] to update that patient has been medically cleared for discharged. Called x3 however there was no answer and no voice mail
to leave a message. Received return call back from Cheryl who stated that she can't take patient back until clinical is faxed through [employer]. Will fax referral. OOHDNR signed by attending.
Plan: Case management will continue to follow and assist with discharge planning. Back to [facility] once clearance is received from Cheryl in admissions.
[2023-09-11 12:01] LABS: Glucose - Point of Care 200 mg/dl (70-99)
--- NOTE | 2023-09-11 12:23 | HOSPNOTE ---
Once patient goes back to the [facility] hospice will sign patient onto hospice services, spouse in agreement. Please let us know when discharge is scheduled.
[2023-09-11 17:58] LABS: Glucose - Point of Care 211 mg/dl (70-99)
[2023-09-11 20:10] VITALS: BP 146/61
[2023-09-12 07:28] VITALS: BP 133/70
[2023-09-12] MEDS: DESENEX/MITRAZOL/ZEASORB 1 APPLIC TOPICAL (08:30)
--- NOTE | 2023-09-12 09:15 | CM ---
Addendum entered by JI Lunsford 09/12/23 09:43:
Provided [employer] with oohdnr, transfer sheet and med necessity. Updated Carmella Meza, hospice liason regarding imminent discharge.
Original Note:
Recieved call from Cheryl in admissions at [facility] who confirmed acceptance for patient today. # for report [phone] and fax# [phone]
Plan: Case management will continue to follow and assist with discharge planning/transfer to the [facility] on Hospice today.
--- NOTE | 2023-09-12 10:17 | HOSPNOTE ---
Patient will be going back to [facility] on hospice services. hospice will arrive at [facility] to admit patient onto hospice services. Transport is scheduled for 12 noon. OOH DNR will be needed on chart. Case management aware. Comfort meds
only for patient.
[2023-09-12 11:44] LABS: COVID-19 Antigen Negative (Negative)
--- NOTE | 2023-09-12 11:44 | W.PN.HOSP.TC ---
Today's Communication/Plan
-
Discharge to [facility] on Hospice
Assessment / Plan
Assessment / Plan
Patient is an 83y F with PMH significant for A-Fib and DM-II who [place] ED [place] for evaluation of wheeze and SOB.� History is obtained from the patient and ED staff.� Patient was sent to the ED with SOB and concern for possible
aspiration.� There is no additional information on [place] paperwork regarding today's symptoms.� Patient complains of SOB.� She denies any pain.� She does not believe she has had any issues with eating / drinking.� She denies any coughing or choking
episodes. Poor historian
Patient is audibly wheezing in the ED and is in mild - moderate distress due to dyspnea.
Awake
Not following commands
A/P:� Patient is an 83y F with PMH significant for A-Fib, COPD and CHF who presents to ED for evaluation of SOB.
Entered into comfort care with repeated aspiration events and inability to clear her airway with advanced dementia and dysphagia
#RLL Pneumonia
Acute Hypoxemic Respiratory Failure secondary to the above
Sepsis secondary to the above
�- Patient presents with SOB and CXR evidence for R base pneumonia.
�- Evidence of life-threatening organ dysfunction in the form of acute hypoxemic respiratory failure.
�- Discontinued antibiotics on comfort care
�- Continue nebs ATC and PRN.
��- Aspiration precautions / formal Speech therapy evaluation. Undertaken and has high risk for recurrent aspiration with all consistencies recommendation is for complete n.p.o. status as cannot protect her airway
-Spoke to spouse at bedside and have decided to initiate comfort care with transition to hospice at [facility] on discharge
-I have changed her to be oon sips f clears and ice chips
-Once on hospice as tolerated.
#Paroxysmal Atrial Fibrillation/presently in sinus rhythm
�- Stable.� Eliquis, Amiodarone and metoprolol.(Now discontinued in setting of comfort care)
#Chronic HFpEF
�- Stable.�
�- Off Lasix and Farxiga(comfort care).
�- Midodrine Discontinued in the lieu of comfort care
#Benign Hypertension
-Off Metoprolol and lisinopril (comfort care).
#Hypokalemia
#Hypomagnesemia
#COPD
�- Patient with no smoking history, but is maintained on Symbicort.
-Continue nebulization and oxygen therapy as needed on comfort care
#DM-II
Mild Hypoglycemia
Continue to monitor glucose and cover with SSI if needed.
�
#Vascular Dementia
�- Stable.� Monitor for any acute changes / agitation / delirium
-With dependent on all ADLs and care at memory care unit prior.
#Obesity due to excess calories
#Code Status:� DNR
PLAN
Jb had stopped her other meds.
Per Hospice discussion with family that remains the case .
I called left message .
Out of Hospital DNR signed
Meds for comfort script printed for discharge
D/W Case management.
Anticipated Discharge: Today
Subjective/Interval History
-
Date of Service: September 12, 2023
Objective Data
-
Vital Signs:
Vital Signs
Temp Pulse Resp BP Pulse Ox
98 F 93 18 133/70 95
09/12/23 07:28 09/12/23 07:28 09/12/23 07:28 09/12/23 07:28 09/12/23 07:28
I&O
09/11/23 09/12/23 09/13/23
06:59 06:59 06:59
Intake Total 0 / 0
Output Total 100 / 100
Balance 0 / 0 -100 / -100
--- NOTE | 2023-09-12 11:51 | W.DS.TRANS ---
Addendum entered and electronically signed by Caren Heath MD 09/12/23 16:50:
Dictation-[id number]
Correction - Right Lower Lobe Pneumonia
Original Note:
DC Summary - Loss Prevention Auditor
-
Discharge Instructions:
Discharge Diagnosis/Procedures Hide yelling out pneumonia, atrial fibrillation,
heart failure, hypertension, COPD, diabetes,
dementia
Diet As tolerated
Activity As tolerated,With assistance
Driving Restrictions No driving
Other Services Hospice
Instructions:
Stand-Alone Forms:
Changes to Home Medications: Yes
Discharge Medications:
DC Medications w/original date entered in [employer]
bimatoprost 0.01 % eye drops (Lumigan) 1 drp BOTH EYES DAILY Eye Condition 05/09/23
budesonide-formoterol HFA 160 mcg-4.5 mcg/actuation aerosol inhaler (Symbicort) 2 puff inhalation R BID Lung/Breathing Issues 05/09/23
pantoprazole 40 mg tablet,delayed release 40 mg PO DAILY Gastrointestinal Issue 05/09/23
clotrimazole-betamethasone 1 %-0.05 % topical cream 1 applic topical BID Skin Issues 09/07/23
acetaminophen 650 mg rectal suppository 650 mg TN Q4HPRN PRN mild pain, SMITH, or temp >100.4F #0 ea 09/12/23
bisacodyl 10 mg rectal suppository 10 mg TN DAILYPRN PRN if no BM for 3 days #0 ea 09/12/23
furosemide 20 mg tablet 20 mg PO DAILY PRN shortness of breath #30 tabs 09/12/23
lorazepam 2 mg/mL oral concentrate 1 mg (0.5 mL) buccal Q4HPRN PRN anxiety #30 mL 09/12/23
morphine concentrate 10 mg/0.5 mL oral syringe (FOR ORAL USE ONLY) 10 mg (0.5 mL) sublingual Q4HPRN PRN secretions/ SOB/ Pain #1 ea 09/12/23
prochlorperazine 25 mg rectal suppository (Compro) 25 mg TN [id number] PRN nausea/vomiting #0 ea 09/12/23
scopolamine base 1 mg over 3 days transdermal patch 1 patch transdermal Q72H #0 ea 09/12/23
Home Medication Changes
All meds except comfort meds stopped.
Pending Results: No
== END 2023-09-12 12:17 | DRG 871 ==
LOC: 3 WEST ACU 20:34
PROVIDERS: ADMITTING PHYSICIAN Hospitalist; ATTENDING PHYSICIAN Hospitalist; EMERGENCY PHYSICIAN Student in an Organized Health Care Education/Training Program; FAMILY PHYSICIAN Internal Medicine
DX: A41.9 Sepsis, unspecified organism (principal); J69.0 Pneumonitis due to inhalation of food and vomit; J96.01 Acute respiratory failure with hypoxia; I50.32 Chronic diastolic (congestive) heart failure; J44.0 Chronic obstructive pulmonary disease with (acute) lower respiratory infection; Z11.52 Encounter for screening for COVID-19; I48.0 Paroxysmal atrial fibrillation; I11.0 Hypertensive heart disease with heart failure; E87.6 Hypokalemia; E11.649 Type 2 diabetes mellitus with hypoglycemia without coma; F01.50 Vascular dementia, unspecified severity, without behavioral disturbance, psychotic disturbance, mood disturbance, and anxiety; E66.01 Morbid (severe) obesity due to excess calories; Z66 Do not resuscitate; Z68.31 Body mass index [BMI] 31.0-31.9, adult; E83.42 Hypomagnesemia
CPT/HCPCS: 71045; 80048; 80053; 82962; 83036; 83735; 83880; 84443; 84484; 85025; 85027; 87070; 87502; 87811; 92526; 92610; 93005; 94640; 96365; 96375; 99285